=== PATIENT | male | born 1985 | race African-American/Black ===

== ENCOUNTER 2020-09-26 20:24 | Emergency (ER) | payer OTHER, SELFPAY ==
[2020-09-26 20:44] VITALS: BP 142/90; PULSE 67; RESP 16; TEMP 36.7; O2SAT 97; BMI 29.1
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
[2020-09-26 21:56] LABS: Basophils Absolute Auto 0.1 X10*3/uL (0.0-0.2); Basophils Percent Auto 0.6 % (0-2); Eosinophils Absolute Auto 0.1 X10*3/uL (0.0-0.4); Hematocrit 44.9 % (42-52); Hemoglobin 14.5 g/dl (14.0-18.0); Imm Gran Abs Auto 0.02 X10*3/uL (0.00-0.03); Imm Gran Pct Auto 0.2 % (0.0-0.4); Lymphocytes Absolute Auto 1.6 X10*3/uL (1.2-4.9); Lymphocytes Percent Auto 17.5 % (20-40); MANUAL DIFF FLAG NO; Mean Corpuscular HGB Conc 32.3 g/dl (31.0-36.0); Mean Corpuscular Hemoglobin 28.8 pg (27.0-33.0); Mean Corpuscular Volume 89.3 fL (80-98); Mean Platelet Volume 9.9 fL (9.4-12.4); Monocytes Absolute Auto 0.6 X10*3/uL (0.1-1.2); Monocytes Percent Auto 7.1 % (2-11); Neutrophils Absolute Auto 6.6 X10*3/uL (2.0-8.3); Neutrophils Percent Auto 73.6 % (45-73); Platelet Count 320 X10*3/uL (160-400); Red Blood Count 5.03 X10*6/uL (4.60-5.80)
[2020-09-26] MEDS: ondansetron HCL 4 MG/2 ML VIAL IVPUSH (21:57)
[2020-09-26] MEDS: Morphine Sulfate 4 MG/ML CARTRIDGE IVPUSH (21:57)
[2020-09-26] MEDS: 0.9 % Sodium Chloride 1,000 ML 1000 ML IV (21:57)
[2020-09-26 22:35] LABS: Alanine Aminotransferase 20 U/L (0-40); Albumin Level 4.4 g/dL (3.5-5.0); Alkaline Phosphatase 54 U/L (39-117); Anion Gap 13 (12-20); Aspartate Amino Transferase 24 U/L (5-37); Bilirubin Total 1.2 mg/dL (0.0-1.0); Blood Urea Nitrogen 11 mg/dL (9-16); Calcium 9.1 mg/dL (8.4-10.2); Carbon Dioxide 29 mmol/L (22-29); Chloride 102 mmol/L (96-108); Creatinine Clr Calc Pharmacy 117.6; Estimated Glomerular Filt Rate > 60; Glucose Random 82 mg/dL (60-115); Potassium 4.2 mmol/l (3.3-5.1); Sodium 140 mmol/L (135-145); Total Protein 7.3 g/dL (6.5-8.0)
[2020-09-26] MEDS: iohexoL 350 MG/ML 100 ML INFUS..BTL IV (23:17)
[2020-09-26 23:23] VITALS: BP 145/84; PULSE 73; RESP 18; TEMP 36.7; O2SAT 100
--- NOTE | 2020-09-26 23:25 | PC.NURSE ---
PT RETURNED FROM CT SCAN. REPORTS CONTINUED PAIN LITTLE HELP FROM PREVIOUS MEDS. ALSO REPORTING NEW SWELLING TO LEFT HIP AREA, PALPABLE AND PAINFUL. VENICE SHANK SANDER NOTIFIED.
[2020-09-27] MEDS: HYDROmorphone HCl 0.5 MG/0.5 ML SYRINGE IVPUSH (00:13)
--- NOTE | 2020-09-27 00:16 | PC.NURSE ---
PT MEDICATED PER MAR, AWAITING IMPROVEMENT IN SYMPTOMS AND CT RESULTS. AWARE OF PLAN OF CARE.
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
[2020-09-27 01:19] VITALS: BP 153/74; PULSE 70; RESP 18; TEMP 36.7; O2SAT 98
== END 2020-09-27 02:15 | disposition home or self-care (01) ==
PROVIDERS: Nurse Practitioner Primary Care; Emergency Provider Student in an Organized Health Care Education/Training Program; PCP Internal Medicine
DX: S06.0X9A Concussion with loss of consciousness of unspecified duration, initial encounter (principal); S00.81XA Abrasion of other part of head, initial encounter; M54.2 Cervicalgia; G44.309 Post-traumatic headache, unspecified, not intractable; R10.30 Lower abdominal pain, unspecified; M54.5 Low back pain; V19.9XXA Pedal cyclist (driver) (passenger) injured in unspecified traffic accident, initial encounter; Y93.55 Activity, bike riding; Y92.481 Parking lot as the place of occurrence of the external cause; Y99.9 Unspecified external cause status; Z79.899 Other long term (current) drug therapy
CPT/HCPCS: 36415; 70450; 71260; 72125; 74177; 80053; 85025; 96361; 96374; 96375; 99284; J1170; J2270; J2405; Q9967

== ENCOUNTER 2021-02-11 17:04 | Outpatient (REF) | payer OTHER, SELFPAY ==
[2021-02-11 17:58] LABS: COVID-19 Test Negative (Negative)
== END 2021-02-11 17:05 | disposition home or self-care (01) ==
LOC: HO.LAB 17:04
PROVIDERS: Visit Provider Nurse Practitioner Primary Care
DX: Z20.822 Contact with and (suspected) exposure to COVID-19 (principal)
CPT/HCPCS: 36415; 87635

== ENCOUNTER 2021-02-20 10:14 | Outpatient (REF) | payer OTHER, SELFPAY ==
[2021-02-20 10:48] LABS: COVID-19 Test Negative (Negative)
== END 2021-02-20 10:15 | disposition home or self-care (01) ==
LOC: HO.LAB 10:14
PROVIDERS: Visit Provider Internal Medicine
DX: Z20.822 Contact with and (suspected) exposure to COVID-19 (principal)
CPT/HCPCS: 36415; 87635; C9803

== ENCOUNTER 2021-04-08 21:11 | Emergency (ER) | payer OTHER, SELFPAY ==
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
[2021-04-08 21:43] VITALS: BP 140/79; PULSE 70; RESP 18; TEMP 37.1; O2SAT 100; BMI 32.5
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
[2021-04-08] MEDS: Acetaminophen 325 MG TABLET 650 MG PO (22:37)
[2021-04-08] MEDS: oxyCODONE HCl Immed Release 5 MG TABLET PO (23:08)
== END 2021-04-08 23:09 | disposition home or self-care (01) ==
PROVIDERS: Emergency Provider Emergency Medicine; PCP Internal Medicine
DX: S50.11XA Contusion of right forearm, initial encounter (principal); V28.4XXA Motorcycle driver injured in noncollision transport accident in traffic accident, initial encounter; Y93.89 Activity, other specified; Y92.414 Local residential or business street as the place of occurrence of the external cause; Y99.9 Unspecified external cause status
CPT/HCPCS: 73090; 99283

== ENCOUNTER 2021-11-20 15:11 | Outpatient (REF) | payer OTHER, SELFPAY ==
[2021-11-20 15:57] LABS: COVID-19 Test Positive (Negative)
== END 2021-11-20 15:12 | disposition home or self-care (01) ==
LOC: HO.LAB 15:11
PROVIDERS: Visit Provider Internal Medicine
DX: Z20.822 Contact with and (suspected) exposure to COVID-19 (principal)
CPT/HCPCS: 87635; C9803

== ENCOUNTER 2023-02-26 21:57 | Emergency (ER) | payer OTHER, SELFPAY ==
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
--- NOTE | ~2023-02-26 | XR_ITS ---
EXAMINATION: XR SHOULDER, LEFT CLINICAL INFORMATION: Fall COMPARISON: None available. TECHNIQUE: AP external rotation, Grashey, scapular Y, and axillary views of the left shoulder. FINDINGS: Glenohumeral alignment is anatomic. No acute fracture is seen. The acromioclavicular joint is intact with mild degenerative change. XR/XR shoulder LT min 2V IMPRESSION: No acute findings. Mild degenerative change of the acromioclavicular joint.
[2023-02-26 21:59] VITALS: BP 149/85; PULSE 84; RESP 18; TEMP 36.8; O2SAT 100; BMI 32.5
[2023-02-26 22:14] VITALS: BP 136/92; PULSE 87; RESP 16; TEMP 36.7; O2SAT 97
[2023-02-26 22:36] VITALS: BP 140/94; PULSE 75; RESP 18; TEMP 36.7; O2SAT 100
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
[2023-02-26] MEDS: Morphine Sulfate 4 MG/ML CARTRIDGE IVPUSH (23:22)
[2023-02-26 23:25] LABS: Basophils Percent Auto 0.5 % (0-2); Eosinophils Percent Auto 0.5 % (0-4); Hematocrit 45.5 % (42.0-52.0); Hemoglobin 14.8 g/dl (14.0-18.0); Imm Gran Abs Auto 0.03 X10*3/uL (0.00-0.03); Imm Gran Pct Auto 0.4 % (0.0-0.4); Lymphocytes Absolute Auto 1.1 X10*3/uL (1.2-4.9); Lymphocytes Percent Auto 14.1 % (20-40); MANUAL DIFF FLAG NO; Mean Corpuscular HGB Conc 32.5 g/dl (31.0-36.0); Mean Corpuscular Hemoglobin 28.3 pg (27.0-33.0); Mean Platelet Volume 9.6 fL (9.4-12.4); Monocytes Absolute Auto 0.5 X10*3/uL (0.1-1.2); Monocytes Percent Auto 6.7 % (2-11); Neutrophils Absolute Auto 6.3 x10*3/uL (2.0-8.3); Neutrophils Percent Auto 77.8 % (45-73); Platelet Count 307 X10*3/uL (160-400); Red Blood Count 5.23 X10*6/uL (4.60-5.80); Red Cell Distribution Width 13.1 % (11.0-16.0)
[2023-02-26 23:48] LABS: Anion Gap 15 (12-20); Blood Urea Nitrogen 16 mg/dL (9-16); Calcium 8.7 mg/dL (8.4-10.2); Carbon Dioxide 21 mmol/L (22-29); Chloride 108 mmol/L (96-108); Creatinine Clr Calc Pharmacy 90.4; Estimated Glomerular Filt Rate > 60; Glucose Random 94 mg/dL (60-115); Sodium 140 mmol/L (135-145)
[2023-02-27 00:30] VITALS: BP 141/94; PULSE 75; RESP 19; TEMP 36.6; O2SAT 100
== END 2023-02-27 00:48 | disposition home or self-care (01) ==
PROVIDERS: Emergency Provider Emergency Medicine; PCP Internal Medicine
DX: S40.012A Contusion of left shoulder, initial encounter (principal); S00.81XA Abrasion of other part of head, initial encounter; S80.211A Abrasion, right knee, initial encounter; S40.212A Abrasion of left shoulder, initial encounter; V86.56XA Driver of dirt bike or motor/cross bike injured in nontraffic accident, initial encounter; Y93.89 Activity, other specified; Y92.414 Local residential or business street as the place of occurrence of the external cause; Y99.9 Unspecified external cause status
CPT/HCPCS: 36415; 70450; 70486; 72125; 73030; 80048; 85025; 96374; 99283; 99284; J2270